=== PATIENT | female | born 1965 | race Caucasian/White ===

== ENCOUNTER 2020-11-10 19:32 | Emergency (ER) | payer MEDICARE, OTHER ==
[~2020-11-10 19:32] MED LIST: AEROCHAMBER1 EA XX; AUGMENTIN 875-1 EACH PO; BENAZEPRIL-HCT1 EAC2 PO; BUPRENORPHIN-N1 EACH SL; CATAPRES 0.1MG0.1 MG PO; CEFUROXIME500 MG PO; ERYTHROMYCIN O3.5 GM EYERT; FLEXERIL 10 MG10 MG PO; GABAPENTIN800 MG PO; IBU800 MG PO; IBUPROFEN800 MG PO; K-DUR TAB 20 M20 MEQ PO; KEFLEX500 MG PO; KLOR-CON 1010 MEQ PO; LASIX20 MG PO; LEVAQUIN500 MG PO; LINZESS145 MCG PO; MEDROL DOSEPAK 24 MG PO; ONDANSETRON ODT4 MG PO; PROTONIX40 MG PO; SEROQUEL300 MG PO; VENTOLIN HFA 66.7 GM INH
[2020-11-10] MEDS ORDERED: ELIMITE 5% CREA60 GM TOP (20:14)
[2020-11-10] MEDS ORDERED: VISTARIL25 MG PO (20:14)
== END 2020-11-10 20:35 | disposition home or self-care (01) ==
LOC: ER1 19:32
DX: L29.9 Pruritus, unspecified (principal); B86 Scabies; E78.5 Hyperlipidemia, unspecified; I11.9 Hypertensive heart disease without heart failure; J44.9 Chronic obstructive pulmonary disease, unspecified; F17.210 Nicotine dependence, cigarettes, uncomplicated; Z95.1 Presence of aortocoronary bypass graft
CPT/HCPCS: 99282

== ENCOUNTER 2021-02-14 14:28 | Emergency (ER) | payer MEDICARE, OTHER ==
[~2021-02-14 14:28] MED LIST changes: +ELIMITE 5% CREA60 GM TOP; +VISTARIL25 MG PO
[2021-02-14] MEDS ORDERED: BACTROBAN OINT22 GM EXT (15:16)
[2021-02-14] MEDS ORDERED: CLEOCIN HCL300 MG PO (15:16)
== END 2021-02-14 15:20 | disposition home or self-care (01) ==
LOC: ER1 14:28
DX: L03.211 Cellulitis of face (principal); I10 Essential (primary) hypertension; F17.210 Nicotine dependence, cigarettes, uncomplicated
CPT/HCPCS: 99283

== ENCOUNTER → 2022-01-31 | Outpatient (CLI) | payer MEDICARE, OTHER ==
[~2022-01-31] MED LIST changes: +BACTROBAN OINT22 GM EXT; +CLEOCIN HCL300 MG PO
== END ==
LOC: KOH-I 11:04
DX: M54.2 Cervicalgia (principal); M47.812 Spondylosis without myelopathy or radiculopathy, cervical region; M43.12 Spondylolisthesis, cervical region; I10 Essential (primary) hypertension; B19.10 Unspecified viral hepatitis B without hepatic coma; E55.9 Vitamin D deficiency, unspecified; F17.219 Nicotine dependence, cigarettes, with unspecified nicotine-induced disorders; Z95.1 Presence of aortocoronary bypass graft; Z95.2 Presence of prosthetic heart valve; J44.9 Chronic obstructive pulmonary disease, unspecified; F99 Mental disorder, not otherwise specified; M54.16 Radiculopathy, lumbar region; L40.8 Other psoriasis; R11.0 Nausea; K59.00 Constipation, unspecified; R01.1 Cardiac murmur, unspecified
CPT/HCPCS: 72040